=== PATIENT | female | born 1975 | race Caucasian/White ===

== ENCOUNTER 2019-05-27 08:38 | Inpatient (IN) | payer MEDICAID ==
[2019-05-27] VITALS (14 sets, daily range): BP systolic 111–149
[~2019-05-27] VITALS: Ht 154.9 cm; Wt 43.1 kg
--- NOTE | 2019-05-27 08:38 | NUR ---
BROUGHT IN BY [facility], PLACED IN BED AND TRIAGED. REPORT GIVEN TO ANDRES
--- NOTE | 2019-05-27 09:02 | NUR ---
Patient arrived in the ED c/o hyperglycemia with chest tightness, + weight loss, + SOB, substernal pain radiating to the back. Denied any fevers, nausea, vomiting, or chills. Patient is alert and oriented x4, respirations even and unlabored, speaking in full sentences, ambulating with a steady gait. VSS, pain level 6/10. Informed of wait time. Instructed to notify ED staff for any changes in condition or worsening of symptoms. Patient verbalized understanding.
--- NOTE | 2019-05-27 09:04 | NUR ---
ECG done at bedside as ordered by Dr. Sumner. Patient tolerated the procedure well. ER Physician given copy of EKG for review.
--- NOTE | 2019-05-27 09:08 | NUR ---
ER Dr. Sumner at bedside examining patient.
[2019-05-27] MEDS ORDERED: NACL 0.9% 2,000 ML IV ONE (09:15)
--- NOTE | 2019-05-27 09:25 | NUR ---
principal technical specialist at bedside collecting blood specimen as ordered by Dr. Sumner. Patient tolerated the procedure well.
[2019-05-27 09:30] LABS: BASOPHILS # (AUTO) 0.4 K/uL (0.0-0.2); BASOPHILS % (AUTO) 1.2 % (0.0-2.0); HEMATOCRIT 43.7 % (36-48); HEMOGLOBIN 14.2 g/dL (12.0-16.0); LYMPHOCYTES # (AUTO) 0.7 K/uL (1.0-5.5); LYMPHOCYTES % (AUTO) 2.2 % (20.5-51.5); MEAN CORPUSCULAR HEMOGLOBIN 30 pg (27-31); MEAN CORPUSCULAR HGB CONC 33 % (32-36); MEAN CORPUSCULAR VOLUME 93 fL (79.0-98.0); MONOCYTES # (AUTO) 2.4 K/uL (0.0-1.0); MONOCYTES % (AUTO) 7.3 % (1.7-9.3); NEUTROPHILS # (AUTO) 29.6 K/uL (1.8-7.7); NEUTROPHILS % (AUTO) 89.3 % (40.0-70.0); PLATELET COUNT (AUTO) 351 K/uL (130-430); RED BLOOD CELL COUNT(AUTO) 4.69 MIL/uL (4.2-6.2); RED CELL DISTRIBUTION WIDTH 13.6 % (9.0-15.0)
[2019-05-27 09:33] LABS: WHITE BLOOD COUNT (AUTO) 33.2 K/uL (4.8-10.8)
[2019-05-27 09:39] LABS: ANION GAP 22 (5-15); CALCIUM 8.5 mg/dL (8.4-11.0); CHLORIDE 92 mmol/L (98-107); CREATININE 0.83 mg/dL (0.55-1.30); POTASSIUM 4.3 mmol/L (3.5-5.1); SODIUM SERUM 123 mmol/L (136-145); UREA NITROGEN, BLOOD 15 mg/dL (8-21)
[2019-05-27 09:45] LABS: ACETONE, SERUM MODERATE (NEGATIVE)
--- NOTE | 2019-05-27 09:45 | NUR ---
Reconciled meds. Belonging's list done.
[2019-05-27 09:49] LABS: ALANINE AMINOTRANSFERASE 16 U/L (12-78); ASPARTATE AMINOTRANSFERASE 12 U/L (10-37); TOTAL BILIRUBIN 0.7 mg/dL (0.0-1.0)
[2019-05-27 09:51] LABS: GFR AFRICAN AMERICAN 97 mL/min (>90)
[2019-05-27 09:52] LABS: GLUCOSE 485 mg/dL (70-99)
[2019-05-27 10:06] LABS: ALBUMIN 2.7 g/dL (3.4-4.8)
[2019-05-27] MEDS ORDERED: INSULIN REGULAR, HUMAN 10 UNITS/0.1 ML INJ IVP ONE (10:15)
[2019-05-27] MEDS ORDERED: INSULIN REGULAR, HUMAN 100 UNITS in NS 99 ML IV ONE ×4 (10:15→11:00)
--- NOTE | 2019-05-27 10:15 | NUR ---
RT at bedside for ABGs.
--- NOTE | 2019-05-27 10:49 | NUR ---
DR ST SPOKE TO DR OKEEFE, PT NOT TRANSFERABLE, RECEIVED AUTHORIZATION #[id number]
[2019-05-27] MEDS ORDERED: NACL 0.9% IV SCH (11:00)
[2019-05-27] MEDS ORDERED: POTASSIUM CHLORIDE IV SCH (11:00)
[2019-05-27] MEDS ORDERED: cefTRIAXone 1 GM in D5W 50 ML IV ONE (11:00)
[2019-05-27] MEDS ORDERED: cefTRIAXone 1 GM VIAL ONE (11:19)
--- NOTE | 2019-05-27 11:30 | NUR ---
# 20 gauge angiocath placed to RFA. Use of asceptic technique. Opsite placed over site. Blood return noted. Flushed with 10 cc of normal saline. No evidence of infiltration noted. Patient tolerated well.
--- NOTE | 2019-05-27 11:58 | NUR ---
Patient will be admitted to care of Dr. Davenport. Admitted to ICU unit. Will go to room 7. Belongings list completed. Complete and up to date summary report printed. SBAR report to be given at bedside with opportunity for questions.
--- NOTE | 2019-05-27 12:10 | NUR ---
Patient received a/ox4, but drowsy at this time, on room air at this time, Regular Insulin Gtt at 6units/hour infusing well, vital signs taken, educated the patient on plan of care and call light system, she verbalized understanding, bed in lowest position, two side rails up, call light within reach, fall and aspiration precautions in place.
--- NOTE | 2019-05-27 12:14 | NUR ---
CONSULTATION PAGED: PRIORITY: ROUTINE REASON FOR CONSULTATION:DIABETIC KETOACIDOSIS WAS CONSULT CALLED:Y PERSON WHO WAS NOTIFIED:CHERYL CONSULTING PHYSICIAN: PERSONAL CARE ASSISTANT SPECIALTY:ENCDOCRINE PERSONAL CARE ASSISTANT PHONE NUMBER:[phone]
--- NOTE | 2019-05-27 12:50 | NUR ---
Called pharmacy for pending IVF orders, will follow up as needed.
--- NOTE | 2019-05-27 13:11 | NUR ---
Blood glucose check 262 at this time.
--- NOTE | 2019-05-27 13:14 | NUR ---
Witnessed insulin drip titrated from 6 units/hr to 3 units/hr.
[2019-05-27] MEDS ORDERED: FAMOTIDINE 20 MG TABLET PO ONE (14:00)
[2019-05-27] MEDS ORDERED: ACETAMINOPHEN 325 MG TABLET PO PRN (14:00)
[2019-05-27] MEDS ORDERED: ONDANSETRON HCL 4 MG/2 ML VIAL IVP PRN (14:00)
--- NOTE | 2019-05-27 14:00 | NUR ---
blood sugar 209, insulin drip decrease to 2units/hr.
[2019-05-27] MEDS: cefTRIAXone 1 GM in D5W 50 ML IV SCH (14:18)
--- NOTE | 2019-05-27 14:24 | NUR ---
Medication/Family educated the patient and her parents on medications and continuing to update with plan of care, they verbalized understanding, patient tolerated well, IV line is patent and infusing well, continuing to monitor, bed in lowest position, two side rails up, call light within reach, fall and aspiration precautions in place.
--- NOTE | 2019-05-27 15:08 | NUR ---
Blood glucose check 222 at this time, no change in insulin drip per protocol, continuing to monitor.
[2019-05-27 15:56] LABS: CALCIUM 8.5 mg/dL (8.4-11.0); CREATININE 0.67 mg/dL (0.55-1.30); POTASSIUM 3.4 mmol/L (3.5-5.1)
[2019-05-27] MEDS ORDERED: KCL 20 mEq in NS 1000 mL 1,000 ML IV SCH (16:00)
[2019-05-27] MEDS ORDERED: INSULIN REGULAR, HUMAN 100 UNITS in NS 99 ML IV PRN ×2 (16:02)
--- NOTE | 2019-05-27 16:13 | NUR ---
Dr. Castro rounds assessed patient, informed him that last bedside blood glucose was 198, will follow up with new orders. Addendum: 05/27/19 at 1617 by Sergio Petit RN Per new insulin drip orders from Dr. Castro - no change in insulin gtt rate - still 2units/hour.
[2019-05-27] MEDS ORDERED: POTASSIUM CHLORIDE 20 MEQ TAB.PRT.SR PO ONE ×2 (16:30→22:00)
[2019-05-27 16:34] LABS: PHOSPHORUS 1.1 mg/dL (2.7-4.5)
--- NOTE | 2019-05-27 17:16 | NUR ---
Blood glucose check 181 at this time, no change in insulin drip per protocol, 2units/hour, continuing to monitor.
--- NOTE | 2019-05-27 18:41 | NUR ---
BLOOD SUGAR 207MG/DL TITRATE INSULIN DRIP TO 3UNITS/HR. WITNESSED.
--- NOTE | 2019-05-27 19:20 | NUR ---
Report obtained from day shift nurse. Pt is sleepy, but easily arousable. Skin is warm and dry to touch. Insulin drip is infusing well in RAC at 3units/hr. IVF of NS W/ 20meq KCL is infusing well in LAC at 150ml/hr. IV sites are without any signs of infiltration. Fall and safety precautions are in place.
--- NOTE | 2019-05-27 20:01 | NUR ---
Accucheck 258 and Insulin drip increased to 4units/hr without any signs of infiltration at the IV site. Skin remains warm and dry to touch.
--- NOTE | 2019-05-27 20:01 | NUR ---
INSULIN DRIP I witness Mari FUNES increase insulin drip to 4 units/hour.
[2019-05-27 20:52] LABS: CALCIUM 8.3 mg/dL (8.4-11.0); CREATININE 0.68 mg/dL (0.55-1.30); PHOSPHORUS 1.1 mg/dL (2.7-4.5); POTASSIUM 3.5 mmol/L (3.5-5.1)
--- NOTE | 2019-05-27 21:04 | NUR ---
INSULIN DRIP I mal Guerra RN decrease insulin drip to 3 units/hour.
--- NOTE | 2019-05-27 21:04 | NUR ---
Accucheck 210 and Insulin drip decreased to 3units/hr without any signs of infiltration noted at the IV site. Skin remains warm and dry to touch.
--- NOTE | 2019-05-27 21:52 | NUR ---
Results of 2009 Chem7, Mag and Phos relayed to Dr. Mancuso and new orders received.
--- NOTE | 2019-05-27 22:02 | NUR ---
INSULIN DRIP I witness Mari FUNES decrease insulin drip to 2 units/hour per insulin sliding scale.
--- NOTE | 2019-05-27 22:02 | NUR ---
Accucheck 177 and Insulin drip decreased to 2units/hr without any signs of infiltration noted at the IV site. Skin remains warm and dry to touch.
--- NOTE | 2019-05-27 22:25 | NUR ---
Nursing care of pt endorsed to nurse De La Torre.
[2019-05-28] VITALS (22 sets, daily range): BP systolic 102–149
--- NOTE | 2019-05-28 | NUR ---
INSULIN DRIP I seven De La Torre RN decrease insulin drip to 1unit/hr per insulin sliding scale.
[2019-05-28 00:50] LABS: BILIRUBIN,URINE NEGATIVE (NEGATIVE); BLOOD, URINE 1+ (NEGATIVE); CLARITY/URINE CLEAR (CLEAR); COLOR,URINE YELLOW (YELLOW); GLUCOSE,URINE 3+ (NEGATIVE); KETONES,URINE 3+ (NEGATIVE); LEUKOCYTE ESTERASE ,URINE NEGATIVE (NEGATIVE); NITRITE, URINE NEGATIVE (NEGATIVE); PROTEIN URINE 2+ (NEGATIVE); UROBILINOGEN,URINE 0.2 (0.2-1.0)
[2019-05-28 00:54] LABS: HCG,QUAL RESULT NEGATIVE (NEGATIVE)
[2019-05-28] MEDS: K PHOS IV SCH ×3 (00:54→15:00)
[2019-05-28] MEDS: NACL IV SCH ×3 (00:54→15:00)
[2019-05-28 01:02] LABS: CALCIUM 8.3 mg/dL (8.4-11.0); CREATININE 0.43 mg/dL (0.55-1.30); POTASSIUM 3.6 mmol/L (3.5-5.1)
[2019-05-28 01:08] LABS: BACTERIA,URINE FEW /HPF (None Seen)
--- NOTE | 2019-05-28 02:00 | NUR ---
INSULIN DRIP I witnessed Wil FUNES stop insulin drip, per insulin sliding scale.
--- NOTE | 2019-05-28 02:13 | NUR ---
PAGED DR. PARKER [phone] SPOKE WITH GENE
[2019-05-28] MEDS ORDERED: KCL 20 mEq in D5/0.45NS 1000mL 1,000 ML IV SCH (02:21)
[2019-05-28] MEDS ORDERED: POTASSIUM CHLORIDE 20 MEQ TAB.PRT.SR PO ONE (02:30)
[2019-05-28] MEDS ORDERED: KCL 20 mEq in D5/0.45NS 1000mL 1,000 ML IV ONE (03:31)
--- NOTE | 2019-05-28 05:00 | NUR ---
Blood sugar 162. Insulin drip re started at this time at 2 u/h
--- NOTE | 2019-05-28 05:00 | NUR ---
INSULIN DRIP I witnessed Wil FUNES resume insulin drip, 2unit/hr per insulin sliding scale.
[2019-05-28 05:10] LABS: CALCIUM 8.4 mg/dL (8.4-11.0); CREATININE 0.39 mg/dL (0.55-1.30); PHOSPHORUS 1.5 mg/dL (2.7-4.5); POTASSIUM 3.9 mmol/L (3.5-5.1); THYROID STIMULATING HORMONE 0.4 uIu/mL (0.36-3.74)
--- NOTE | 2019-05-28 06:00 | NUR ---
INSULIN DRIP I seven De La oTrre RN increase insulin drip to 4units/hr per insulin sliding scale.
[2019-05-28] MEDS: FAMOTIDINE 20 MG TABLET PO SCH (09:24)
--- NOTE | 2019-05-28 09:52 | NUR ---
Called Dr. Evans with a consult, spoke with Manuela from doctors office
--- NOTE | 2019-05-28 10:27 | NUR ---
DC PLANNING RECEIVED PHONE CALL FROM [facility] MANDY FOR UPDATE OF PATIENT INFORMATION FOR POSSIBLE TRANSFER PATIENT. JET # [phone], CALLED DR RUTHERFORD # [phone] X2, AND CALLED HER OFFICE # [phone] X2, AWAIT FOR DR RUTHERFORD TO CALL BACK FOR POSSIBLE OUT NETWORK TRANSFER AND DCP. RAFITA FUNES CM Addendum: 05/28/19 at 1133 by Alex Bentley RN DC PLANNING REPORTED TO [facility] JET # [phone], BS AT 4 AM 191, NA 128, WBC 33.2, 05/27/2019 BS AT ED WAS 485, PROVIDED SANGEETA CASTILLO CELL# [phone] AND OFFICE # [phone] WELL ICU TEL # [phone]. JACI GALVAN MENTIONED THAT THE NETWORK FACILITY [facility]. AT 11:28 AM RECEIVED CALL BACK FROM SANGEETA CASTILLO, AWARE OF POSSIBLE TRANSFER PATIENT BACK TO NETWORK FACILITY. Addendum: 05/28/19 at 1352 by Alex Bentley RN DC PLANNING INFORMED INSURANCE JACI GALVAN FOR TRANSFER ORDER, JET WILL INFORM THEIR MEDICAL DR TO VERIFY IF THEY WANT TO TRANSFER PATIENT OR NOT. CONTINUE FOLLOW UP WITH DCP NEEDED RAFITA FUNES CM
[2019-05-28] MEDS ORDERED: POTASSIUM CHLORIDE 10 MEQ in NACL 0.9% 1,000 ML IV SCH (11:00)
[2019-05-28 11:02] LABS: BASOPHILS # (AUTO) 0.2 K/uL (0.0-0.2); BASOPHILS % (AUTO) 0.6 % (0.0-2.0); EOSINOPHILS # (AUTO) 0.1 K/uL (0.0-0.4); EOSINOPHILS % (AUTO) 0.5 % (0.0-4.0); HEMATOCRIT 38.2 % (36-48); HEMOGLOBIN 12.4 g/dL (12.0-16.0); LYMPHOCYTES # (AUTO) 1.1 K/uL (1.0-5.5); LYMPHOCYTES % (AUTO) 4.1 % (20.5-51.5); MEAN CORPUSCULAR HEMOGLOBIN 30 pg (27-31); MEAN CORPUSCULAR HGB CONC 32 % (32-36); MEAN CORPUSCULAR VOLUME 91 fL (79.0-98.0); MONOCYTES # (AUTO) 2.4 K/uL (0.0-1.0); MONOCYTES % (AUTO) 9.2 % (1.7-9.3); NEUTROPHILS # (AUTO) 22.2 K/uL (1.8-7.7); NEUTROPHILS % (AUTO) 85.6 % (40.0-70.0); PLATELET COUNT (AUTO) 258 K/uL (130-430); RED BLOOD CELL COUNT(AUTO) 4.19 MIL/uL (4.2-6.2); RED CELL DISTRIBUTION WIDTH 13.8 % (9.0-15.0); WHITE BLOOD COUNT (AUTO) 25.9 K/uL (4.8-10.8)
--- NOTE | 2019-05-28 11:07 | NUR ---
Nutrition Update Oliver Scale 16 noted. Pt admitted for DKA, sepsis. Diet: clear liquid BMI: 14.9 kg/m2 RD to follow per nutrition care standards.
--- NOTE | 2019-05-28 11:41 | NUR ---
DC PLANNING CHART REVIEWED, ICU CARE, BS 191/241, BS AT ED WAS 485, NA 128, WBC 33.2, ON INSULIN DRIP IVF, VISTED PATIENT AT ICU BS, MEETING PATIENT'S MOTHER FOR DCP INFORMATION. ADLS- INDEPENDENT, DME- NONE. DCP: POSSIBLE TRANSFER TO NETWORK FACILITY IN [place] OR [facility]. MOTHER WAS INFORMED BY JACI MARCOS, CURRENTLY AWAIT FOR STABLE TRANSFER AND ORDER. WILL CLOSELY FOLLOW UP WITH DCP NEEDED. JCC RN CM
--- NOTE | 2019-05-28 13:12 | NUR ---
Witnessed insulin drip titrated up to 4units/hr on pump.
--- NOTE | 2019-05-28 14:42 | NUR ---
DC PLANNING INFORMED INSURANCE CM MANDY FOR TRANSFER ORDER, JET WILL INFORM THEIR MEDICAL DR TO VERIFY IF THEY WANT TO TRANSFER PATIENT OR NOT. CONTINUE FOLLOW UP WITH DCP NEEDED RAFITA FUNES CM
[2019-05-28] MEDS: cefTRIAXone 1 GM in D5W 50 ML IV SCH (15:00)
--- NOTE | 2019-05-28 15:45 | NUR ---
Received endorsement from Milka FUNES using SBAR
--- NOTE | 2019-05-28 16:00 | NUR ---
ASSESSMENT PT sleeping and reports no pain. Lethargic. Blood Sugar of 340 mg/dL noted. Titrated to 5 units of insulin drip. Pt continent with no signs of edema or skin issues. A/O x 4. Will continue to monitor blood sugar hourly.
--- NOTE | 2019-05-28 16:00 | NUR ---
Witnessed insulin drip decreased to 5 units/hr on pump.
--- NOTE | 2019-05-28 17:00 | NUR ---
Witnessed insulin drip being decreased to 3 units/hr on the pump.
[2019-05-28] MEDS ORDERED: NA PHOS 15 MM in NS 250 ML IV ONE (18:00)
[2019-05-28] MEDS ORDERED: INSULIN REGULAR, HUMAN 100 UNITS in NS 99 ML IV PRN ×2 (18:15)
--- NOTE | 2019-05-28 18:20 | NUR ---
Dr Castro on unit. asked for BMP, MAG, & Phos results from last 12 hours. Informed MD that labs from 0800, 1200, & 1600 were not drawn. demanded orders we placed in the AM but no orders were found. Informed I received PT @ 1600 and was not endorsed about lab frequency. Amy FUNEScharge hand nurse is discussing issues with Milka FUNES (Registry) with . Informed I will be bedside if there are any issues that need to be discussed.
[2019-05-28] MEDS: AZITHROMYCIN 500 MG in NS 250 ML IV SCH (18:22)
[2019-05-28] MEDS ORDERED: DEXTROSE 50%-WATER 50 ML DISP.SYRIN IVP PRN (18:30)
[2019-05-28] MEDS ORDERED: D5W 1,000 ML IV PRN (18:30)
--- NOTE | 2019-05-28 18:30 | NUR ---
Dr Castro bedside, orders received.
--- NOTE | 2019-05-28 19:15 | NUR ---
Endorsement provided to night RN using SBAR. PT sleeping after eating dinner. No signs of pain. Family bedside.
--- NOTE | 2019-05-28 19:46 | NUR ---
ORDER CALLED DR. RUTHERFORD DIALED: [phone] SPOKE TO: MIRI
--- NOTE | 2019-05-28 20:38 | NUR ---
INSULIN DRIP I witnessed Katie FUNES increase insulin drip to 5 units/HR, per sliding scale.
[2019-05-28 20:59] LABS: CREATININE 0.48 mg/dL (0.55-1.30); POTASSIUM 3.9 mmol/L (3.5-5.1)
[2019-05-28 21:02] LABS: PHOSPHORUS 1.7 mg/dL (2.7-4.5)
--- NOTE | 2019-05-28 21:55 | NUR ---
IV SITE Left forearm with 20ga angiocath, discontinued due to IV site leaking.
[2019-05-28] MEDS ORDERED: POTASSIUM CHLORIDE 10 MEQ TAB.PRT.SR PO ONE (22:00)
--- NOTE | 2019-05-28 22:00 | NUR ---
IV RE-INSERTION: IV site leaking. Restarted on R upper arm . Successful after 1 attempts. Resumed current IVF NS+20mm potassium phosphate and regulated @ 100ml per hour. Will observe for any signs of infiltration.
--- NOTE | 2019-05-28 23:00 | NUR ---
INSULIN DRIP I witnessed Katie FUNES decrease insulin drip to 4 units/HR, per insulin sliding scale.
[2019-05-29] VITALS (24 sets, daily range): BP systolic 77–146
--- NOTE | 2019-05-29 00:21 | NUR ---
INSULIN DRIP I witnessed Katie FUNES decrease insulin drip to 3 units/HR per insulin sliding scale.
--- NOTE | 2019-05-29 01:30 | NUR ---
INSULIN DRIP I witnessed Katie FUNES decrease insulin drip to 2 units/HR per insulin sliding scale.
--- NOTE | 2019-05-29 02:00 | NUR ---
moffett cath 16 fr inserted with 300ml clear dark yellow urine return pt voided on bed ag at 2200 100ml urine
[2019-05-29 02:26] LABS: CALCIUM 7.8 mg/dL (8.4-11.0); CREATININE 0.32 mg/dL (0.55-1.30); PHOSPHORUS 2.3 mg/dL (2.7-4.5); POTASSIUM 3.8 mmol/L (3.5-5.1)
--- NOTE | 2019-05-29 03:19 | NUR ---
MD ROSALES CALLED [facility] FOR LAB RESULTS DIALED: [phone] SPOKE TO ALISA
--- NOTE | 2019-05-29 03:30 | NUR ---
DR PARKER GIVEN LAB RESULTS BMP PHOS AND MG INSULIN GTT AT 2UNITS AND ORDERED TO REDUCE TO 1 UNIT IF GLUCOSE BELOW 12O STOP INSULIN GTT FRANSISCA BLOOD SUGAR 1 HOUR AFTER IF ABOVE 120 RESTART INSULIN GTT
--- NOTE | 2019-05-29 03:30 | NUR ---
INSULIN DRIP I witnessed Katie FUNES decrease insulin drip to 1 unit/Hr, per Dr Castro.
--- NOTE | 2019-05-29 04:00 | NUR ---
INSULIN DRIP I witnessed Katie FUNES increase insulin drip to 3 units/HR per sliding scale. Sliding scale restarted.
[2019-05-29] MEDS ORDERED: COMMUNICATION ORDER XX ONE (04:15)
[2019-05-29 05:45] LABS: BASOPHILS # (AUTO) 0.1 K/uL (0.0-0.2); BASOPHILS % (AUTO) 0.8 % (0.0-2.0); EOSINOPHILS # (AUTO) 0.1 K/uL (0.0-0.4); EOSINOPHILS % (AUTO) 0.5 % (0.0-4.0); HEMATOCRIT 32.2 % (36-48); HEMOGLOBIN 10.6 g/dL (12.0-16.0); LYMPHOCYTES # (AUTO) 1.8 K/uL (1.0-5.5); LYMPHOCYTES % (AUTO) 12.5 % (20.5-51.5); MEAN CORPUSCULAR HEMOGLOBIN 30 pg (27-31); MEAN CORPUSCULAR HGB CONC 33 % (32-36); MEAN CORPUSCULAR VOLUME 89 fL (79.0-98.0); MONOCYTES # (AUTO) 1.6 K/uL (0.0-1.0); MONOCYTES % (AUTO) 11.3 % (1.7-9.3); NEUTROPHILS # (AUTO) 10.6 K/uL (1.8-7.7); NEUTROPHILS % (AUTO) 74.9 % (40.0-70.0); PLATELET COUNT (AUTO) 288 K/uL (130-430); RED CELL DISTRIBUTION WIDTH 13.5 % (9.0-15.0); WHITE BLOOD COUNT (AUTO) 14.1 K/uL (4.8-10.8)
[2019-05-29 06:22] LABS: ALBUMIN 1.6 g/dL (3.4-4.8); CALCIUM 7.6 mg/dL (8.4-11.0); CREATININE 0.31 mg/dL (0.55-1.30); PHOSPHORUS 2.8 mg/dL (2.7-4.5); TOTAL BILIRUBIN 0.3 mg/dL (0.0-1.0)
--- NOTE | 2019-05-29 07:20 | NUR ---
Received patient and report from [facility] shift nurse. Patient in no acute distress. Side rails x 3 up. Call light with in reach. Breathing even and unlabored. Denies pain.
[2019-05-29] MEDS: FAMOTIDINE 20 MG TABLET PO SCH (08:08)
[2019-05-29 08:21] LABS: CALCIUM 7.6 mg/dL (8.4-11.0); CREATININE 0.33 mg/dL (0.55-1.30); PHOSPHORUS 2.2 mg/dL (2.7-4.5); POTASSIUM 3.8 mmol/L (3.5-5.1)
[2019-05-29] MEDS: INSULIN REGULAR, HUMAN 100 UNITS in NS 99 ML IV PRN ×4 (08:22→09:56)
[2019-05-29] MEDS ORDERED: SODIUM BICARBONATE 650 MG TABLET PO SCH ×2 (09:00→21:00)
[2019-05-29] MEDS ORDERED: POTASSIUM CHLORIDE 20 MEQ TAB.PRT.SR PO ONE (09:15)
--- NOTE | 2019-05-29 09:20 | NUR ---
Informed MD Castro latest BMP results, new order sodium bicarb PO tablets 1300 BID and 20 meq potassium x 1 PO. Orders placed.
--- NOTE | 2019-05-29 11:06 | NUR ---
DC PLANNING Called & spoke w Andrzej @ [facility], ph [phone], states that Peer to Peer done yest & their Physician, Dr Diego, states not stable to transfer, pt to stay here. She will review case again today with their Physician but @ this time not stable to transfer per their Md, pt cont on Insulin drip in ICU. Pt ok to stay here for now.
[2019-05-29 12:46] LABS: CALCIUM 7.6 mg/dL (8.4-11.0); CREATININE 0.33 mg/dL (0.55-1.30); PHOSPHORUS 2.6 mg/dL (2.7-4.5); POTASSIUM 4.2 mmol/L (3.5-5.1)
--- NOTE | 2019-05-29 14:00 | NUR ---
DC PLANNING Received call from Dr Davenport, she spoke w Dr Mcgovern @ [facility] & stable for transfer. Can go either ICU or Tele depending where they can do Insulin drip. I called & left msg w Andrzej @ [facility]. Spoke w pt @ bedside, agreeable to transfer to contacted hospital, prefer [facility] or [facility]. Received call from Andrzej states she is working on transfer ICU level, will look for bed @ [facility] first will try [facility] last. States can use ambulance: [facility], [facility], or [facility] with auth #[id number]. If those ambulances are not able to then can use any ambulance with same auth#. Called & placed [facility] on will call, trip #[id number], nurse transport for IV Insulin drip & monitoring and evaluation advisor. Updated pt's nurse.
--- NOTE | 2019-05-29 14:06 | NUR ---
Paged Dr. Castro for orders. Spoke with exchange.
[2019-05-29] MEDS: cefTRIAXone 1 GM in D5W 50 ML IV SCH (14:08)
[2019-05-29] MEDS ORDERED: DEXTROSE 50% JECT 50 ML DISP.SYRIN IVP PRN (14:45)
[2019-05-29] MEDS ORDERED: INSULIN Lispro 100 UNITS/ML VIAL (humaLOG) SUBCUT ONE (14:45)
[2019-05-29] MEDS ORDERED: INSULIN GLARGINE 100 UNITS/ML 10 ML VIAL SUBCUT ONE (14:45)
--- NOTE | 2019-05-29 15:32 | NUR ---
Dietitian Recommendations * [facility]-45 gm diet w/ Glucerna TID (ONS provides an additional 660 kcal/day, 30 gm protein/day) TWAN, RD Please refer to Nutrition Assessment for details. Addendum: 05/29/19 at [address] Amended: Links added.
[2019-05-29] MEDS: AZITHROMYCIN 500 MG in NS 250 ML IV SCH (17:51)
[2019-05-29] MEDS: KCL 20 mEq in NS 1000 mL 1,000 ML IV SCH (17:51)
[2019-05-29] MEDS: INSULIN LISPRO SLIDING SCALE 100 UNITS/ML VIAL (humaLOG) SUBCUT PRN ×2 (17:56→21:41)
--- NOTE | 2019-05-29 19:19 | NUR ---
OPENING NOTE SBAR REPORT RECEIVED FROM ZELALEM FUNES. CARE ASSUMED. PT LAYING IN BED ON ROOM AIR. O2 SATURATION 98%. PT ANO X4. PT SINUS RHYTHM ON MONITOR. PT HAS 20 G IV TO RIGHT AC AND 20G RIGHT FOREARM RUNNING NS WITH 2MeQ POTASSIUM @ 100 ML/HR. RADIAL AND PEDAL PULSES NORMAL. NO EDEMA NOTED. ABDOMEN SOFT NON DISTENDED. BOWEL SOUNDS ACTIVE. BLISS CATHETER IN PLACE. URINE YELLOW AND CLEAR. SKIN INTACT. BED LOCKED IN LOWEST POSITION. CALL LIGHT WITHIN REACH. WILL CONTINUE TO MONITOR.
--- NOTE | 2019-05-29 19:20 | NUR ---
Endorsed patient and report to oncoming shift nurse. Patient in no acute distress. Side rails x 3 up. Call light with in reach. Breathing even and unlabored. Denies pain.
[2019-05-30] VITALS (17 sets, daily range): BP systolic 98–154
[2019-05-30] MEDS: KCL 20 mEq in NS 1000 mL 1,000 ML IV SCH ×3 (06:21→13:40)
[2019-05-30 06:40] LABS: CALCIUM 7.8 mg/dL (8.4-11.0); CREATININE 0.31 mg/dL (0.55-1.30); POTASSIUM 3.8 mmol/L (3.5-5.1)
--- NOTE | 2019-05-30 07:26 | NUR ---
CLOSING NOTE PT LAYING IN BED. NO SIGNS OR SYMPTOMS OF DISTRESS NOTED. SBAR REPORT GIVEN TO ASTER FUNES. CARE ENDORSED.
--- NOTE | 2019-05-30 07:27 | NUR ---
Opening Note Received bedside report from endorsing RN for continuation of care. Received patient resting in bed, arousable to voice and denies any SOB or pain. No signs or symptoms of acute distress noted. Bed locked in lowest position, bed alarm on, and call light within reach. Fall and safety precautions in place.
[2019-05-30] MEDS: FAMOTIDINE 20 MG TABLET PO SCH (08:52)
[2019-05-30] MEDS: INSULIN GLARGINE 100 UNITS/ML 10 ML VIAL SUBCUT SCH (08:54)
--- NOTE | 2019-05-30 10:20 | NUR ---
Dr. Davenport at bedside examining patient. New orders received.
--- NOTE | 2019-05-30 10:20 | NUR ---
Telemetry Status Per Dr. Davenport, patient can be transferred to telemetry unit. Patient will remain in ICU and be monitored under telemetry status until hospital bed becomes available.
--- NOTE | 2019-05-30 10:41 | NUR ---
Dr. Castro at bedside examining patient. No new orders.
[2019-05-30] MEDS: INSULIN LISPRO SLIDING SCALE 100 UNITS/ML VIAL (humaLOG) SUBCUT PRN ×3 (11:26→21:56)
[2019-05-30] MEDS: cefTRIAXone 1 GM in D5W 50 ML IV SCH (13:40)
--- NOTE | 2019-05-30 14:11 | NUR ---
Dr. Evans at bedside examining patient. New orders received.
--- NOTE | 2019-05-30 14:40 | NUR ---
Transfer to Telemetry Patient transferred to telemetry unit room 108-A via wheelchair using ACLS protocol. ACLS RN present at all times. Endorsed bedside report to oncoming RN using SBAR approach for continuation of care.
--- NOTE | 2019-05-30 14:45 | NUR ---
TRANSFER NOTES rec patiert for icu. awake alert with ivf infusing well . no infiltration oted. bed to the lowest position and side rails up and locked. call light within reached and no sob noted. denies pain at this time.
--- NOTE | 2019-05-30 17:58 | NUR ---
rounds assited to the br and maria well. no sob noted. no hypo hyperglycemic reaction noted.
[2019-05-30] MEDS: AZITHROMYCIN 500 MG in NS 250 ML IV SCH (18:18)
--- NOTE | 2019-05-30 19:20 | NUR ---
initial notes: pt is on bed, awake, alert, oriented x 4, no sob, not distress, no pain, pt complain of coughing will page md for orders. stable, iv antibiotic infusing wt this time. ambulatory with steady gait. explained poc, pt verbalized understanding. needs attended, call light in reach. will monitor.
--- NOTE | 2019-05-30 19:31 | NUR ---
paged paged for Dr Davenport, dialed . s/w Mylene.
--- NOTE | 2019-05-30 19:35 | NUR ---
dr. bajwa call back, spoke to md, report pt is ask for cough medication. md order prn and schedule cough medication.
[2019-05-30] MEDS: guaiFENesin/DEXTROMETHORPHAN 10 ML UDC PO PRN ×2 (20:25→20:28)
[2019-05-30] MEDS: BENZONATATE 100 MG CAPSULE (TESSALON) PO SCH (21:52)
--- NOTE | 2019-05-30 22:01 | NUR ---
awake, alert. no pain, no sob, stable. needs attended.
--- NOTE | 2019-05-31 | NUR ---
sleeping, comfortable, no acute distress. stable. call light with pt.
--- NOTE | 2019-05-31 02:00 | NUR ---
sleeping, no acute distress, stable, ivf infusing well. will monitor.
[2019-05-31] MEDS: guaiFENesin/DEXTROMETHORPHAN 10 ML UDC PO PRN ×3 (03:55→20:56)
--- NOTE | 2019-05-31 04:19 | NUR ---
pt is awake, ask for cough medication, stable, needs attended.
--- NOTE | 2019-05-31 06:03 | NUR ---
sleeping, no acute distress, no sob. stable, ivf infusing well. will monitor.
[2019-05-31 07:15] LABS: BASOPHILS # (AUTO) 0.1 K/uL (0.0-0.2); BASOPHILS % (AUTO) 0.6 % (0.0-2.0); EOSINOPHILS # (AUTO) 0.1 K/uL (0.0-0.4); EOSINOPHILS % (AUTO) 0.8 % (0.0-4.0); HEMATOCRIT 29.5 % (36-48); HEMOGLOBIN 9.9 g/dL (12.0-16.0); LYMPHOCYTES # (AUTO) 1.4 K/uL (1.0-5.5); LYMPHOCYTES % (AUTO) 14.2 % (20.5-51.5); MEAN CORPUSCULAR HEMOGLOBIN 30 pg (27-31); MEAN CORPUSCULAR HGB CONC 34 % (32-36); MEAN CORPUSCULAR VOLUME 89 fL (79.0-98.0); MONOCYTES % (AUTO) 20.2 % (1.7-9.3); NEUTROPHILS # (AUTO) 6.3 K/uL (1.8-7.7); PLATELET COUNT (AUTO) 361 K/uL (130-430); RED BLOOD CELL COUNT(AUTO) 3.31 MIL/uL (4.2-6.2); RED CELL DISTRIBUTION WIDTH 13.7 % (9.0-15.0); WHITE BLOOD COUNT (AUTO) 9.8 K/uL (4.8-10.8)
--- NOTE | 2019-05-31 07:26 | NUR ---
CLOSING: SLEEPING, COMFORTABLE,STABLE THE WHOLE SHIFT. IVF INFUSING WELL. NEEDS ATTENDED THE WHOLE SHIFT. BEDSIDE REPORT GIVEN TO AM RN
[2019-05-31 08:00] VITALS: BP_SYST 115
--- NOTE | 2019-05-31 08:00 | NUR ---
initial notes rec patient awake alert and was eating breakfast. ivf infusing well on the l ac. no infiltration noted. bed to the lowest position and side rails up and locked. call light within reached. no hypo hyperglycemic reaction noted.
[2019-05-31 09:14] LABS: NEUTROPHILS % (AUTO) 64.2 % (40.0-70.0)
--- NOTE | 2019-05-31 09:17 | NUR ---
PAGED PAGED LISANDRO KINCAID AT [phone] SPOKE WITH EXCHANGE.
[2019-05-31] MEDS: BENZONATATE 100 MG CAPSULE (TESSALON) PO SCH ×3 (09:30→20:56)
--- NOTE | 2019-05-31 09:30 | NUR ---
rounds seen by dr pruett and with order. sleeping at intervals. call light within reached.
[2019-05-31] MEDS: FAMOTIDINE 20 MG TABLET PO SCH (09:33)
[2019-05-31] MEDS: INSULIN GLARGINE 100 UNITS/ML 10 ML VIAL SUBCUT SCH (09:33)
[2019-05-31] MEDS: KCL 20 mEq in NS 1000 mL 1,000 ML IV SCH (10:10)
[2019-05-31 12:25] VITALS: BP_SYST 100
--- NOTE | 2019-05-31 12:30 | NUR ---
rounds no hypo hyperglycemic reaction noted.
[2019-05-31] MEDS: INSULIN LISPRO SLIDING SCALE 100 UNITS/ML VIAL (humaLOG) SUBCUT PRN ×3 (12:54→21:44)
--- NOTE | 2019-05-31 14:30 | NUR ---
rounds iv was infiltrated and was restarted by lamont chou rn. sleeps at intervals.
[2019-05-31] MEDS: cefTRIAXone 1 GM in D5W 50 ML IV SCH (15:13)
[2019-05-31 16:20] VITALS: BP_SYST 105
[2019-05-31] MEDS: AZITHROMYCIN 500 MG in NS 250 ML IV SCH (17:01)
--- NOTE | 2019-05-31 17:14 | NUR ---
rounds pt was taken to xray for ct chest via wheelchair. no sob noted.
--- NOTE | 2019-05-31 18:22 | NUR ---
closing notes no hypo hyperglycemic reaction noted. bed to the lowest position and side rails up . call light within reached. no hypo hyperglycemic reaction noted.bed to the lowest position and side rails up and locked.
--- NOTE | 2019-05-31 19:45 | NUR ---
A/A/ OX4.DENIES ANY DISCOMFORT @ THIS TIME.DENIES SOB.O2 SAT ON RA 98%.IVF NS +20 MEQ KCL/L @ 40 ML/HR INFUSING WELL ON HER LFA..INSTRUCTED TO USE CALL LIGHT NEEDED;WITHIN REACH.
[2019-05-31 20:00] VITALS: BP_SYST 105
--- NOTE | 2019-05-31 20:00 | NUR ---
V/S STABLE.AFEBRILE.TELE SHOWED SR.
--- NOTE | 2019-05-31 21:44 | NUR ---
FINGER STICK BLD SUGAR 257.HUMOLOG 6 UNITS ADM .SNACKS GIVEN.
--- NOTE | 2019-06-01 | NUR ---
NOTED WITH OCCASIONAL NON PRODUCTIVE COUGH PER PT. TELE SHOWED SR.
[2019-06-01 00:16] VITALS: BP_SYST 119
--- NOTE | 2019-06-01 02:00 | NUR ---
RESTING COMFORTABLY IN NO ACUTE DISTRESS.
--- NOTE | 2019-06-01 04:00 | NUR ---
V/S STABLE.AFEBRILE.TELE SHOWED SR.
[2019-06-01] MEDS: guaiFENesin/DEXTROMETHORPHAN 10 ML UDC PO PRN ×3 (05:08→21:35)
--- NOTE | 2019-06-01 06:30 | NUR ---
FINGER STICK BLD SUGAR 118.
--- NOTE | 2019-06-01 06:45 | NUR ---
ENDORSED IN NO ACUTE DISTRESS.SAFETY MAINTAINED.IVF INFUSING WELL.NO S/S OF HYPO/HYPERGLYCEMIA NOTED.
--- NOTE | 2019-06-01 08:00 | NUR ---
INITIAL NOTES Awake, sitting in bed. Alert and oriented. Denies any pain or shortness of breath. IVF infusing well. Eats breakfast. Updated with plan of care. Reminded about safety precautions. Call light within reach. Will monitor.
[2019-06-01 08:03] VITALS: BP_SYST 122
[2019-06-01] MEDS: FAMOTIDINE 20 MG TABLET PO SCH (08:30)
[2019-06-01] MEDS: BENZONATATE 100 MG CAPSULE (TESSALON) PO SCH ×3 (08:30→21:24)
[2019-06-01] MEDS: INSULIN GLARGINE 100 UNITS/ML 10 ML VIAL SUBCUT SCH (08:31)
[2019-06-01] MEDS: INSULIN LISPRO SLIDING SCALE 100 UNITS/ML VIAL (humaLOG) SUBCUT PRN ×3 (11:27→21:40)
--- NOTE | 2019-06-01 11:30 | NUR ---
Notes- resting in bed, awake. denies any pain or discomfort. Blood sugar is 269. No distress noted.
--- NOTE | 2019-06-01 11:40 | NUR ---
Transfer to [facility]: Per dr. Davenport: transfer pt to [facility] net work: [facility]. Tele status. CM faxed the order to [place], [facility] dept # [phone] and fax the revised order to fax # [phone]. >> Per Jet: the pt did not transfer on Monday 05/29 due to no bed at [facility]. Today she is waiting for dr. Mcgovern to respond the accepting confirmation. She stated dr. Mcgovern has not returning her call and requested dr. Davenport to reach out and to update pt's status to dr. Mcgovern. I informed dr. Davenport /said " she will contact ."
[2019-06-01 12:00] VITALS: BP_SYST 119
[2019-06-01 12:11] VITALS: BP_SYST 119
[2019-06-01] MEDS: cefTRIAXone 1 GM in D5W 50 ML IV SCH (13:38)
--- NOTE | 2019-06-01 15:00 | NUR ---
Resting in bed. Ambulates independently. Denies any shortness of breath or pain. Needs met. Will continue to monitor.
[2019-06-01 16:00] VITALS: BP_SYST 126
--- NOTE | 2019-06-01 16:00 | NUR ---
Family member sent more patient belongings, mostly clothes and food from outside. Encouraged patient to comply with diet regimen as ordered by doctor.
[2019-06-01] MEDS: AZITHROMYCIN 500 MG in NS 250 ML IV SCH (17:26)
--- NOTE | 2019-06-01 18:25 | NUR ---
CLOSING NOTES Awake and safe in bed. Eats dinner. IV antibiotic still infusing. All needs met throughout shift. Will endorse.
--- NOTE | 2019-06-01 19:05 | NUR ---
OPENING NOTES RECEIVED PATIENT SITTING IN BED. BREATHING UNLABORED ON ROOM AIR. NO C/O PAIN. BED IN LOWEST LOCKED POSITION WITH CALL LIGHT WITH IN REACH.
[2019-06-01 21:23] VITALS: BP_SYST 113
--- NOTE | 2019-06-01 21:35 | NUR ---
MED PASS PATIENT DUE MEDICATIONS GIVEN. COUGH MEDICINE PROVIDED PER PATIENT REQUEST. VITAL SIGNS STABLE.
[2019-06-02 00:45] VITALS: BP_SYST 108
--- NOTE | 2019-06-02 00:45 | NUR ---
ROUNDS PATIENT AWAKE IN BED. NO DISTRESS NOTED. VITAL SIGNS STABLE.
--- NOTE | 2019-06-02 03:30 | NUR ---
ROUNDS NO CHANGE IN PATIENT CONDITION.
[2019-06-02] MEDS: guaiFENesin/DEXTROMETHORPHAN 10 ML UDC PO PRN (06:04)
[2019-06-02] MEDS: INSULIN LISPRO SLIDING SCALE 100 UNITS/ML VIAL (humaLOG) SUBCUT PRN ×4 (06:11→20:56)
--- NOTE | 2019-06-02 06:46 | NUR ---
CLOSING NOTES PATIENT AWAKE SITTING IN BED. NO C/O PAIN. BREATHING UNLABORED ON ROOM AIR. STILL C/O DRY COUGH WAS JUST MEDICATED WITH COUGH MEDICINE. PATIENT NEEDS ATTENDED. BED IN LOWEST LOCKED POSITION. CALL LIGHT WITH IN REACH.
--- NOTE | 2019-06-02 08:01 | NUR ---
Initial notes: Patients vitals are stable, she asked for her breakfast tray and was given to her early. Bed is low, locked, 2 side rails up and call light within reach. Lluvia FUNES
[2019-06-02] MEDS: FAMOTIDINE 20 MG TABLET PO SCH (08:07)
[2019-06-02] MEDS: BENZONATATE 100 MG CAPSULE (TESSALON) PO SCH ×3 (08:08→20:53)
[2019-06-02] MEDS: INSULIN GLARGINE 100 UNITS/ML 10 ML VIAL SUBCUT SCH (08:09)
--- NOTE | 2019-06-02 10:06 | NUR ---
Patients medications were given to her this am, she had breakfast and now going back to sleep. Bed is low, locked, 2 side rails up and call light within reach. Lluvia FUNES
[2019-06-02 10:09] VITALS: BP_SYST 114
--- NOTE | 2019-06-02 11:14 | NUR ---
TRANSFER TO NETWORK: [facility] f/u with [facility] [employer], Karen [facility]/ dept # [phone], so far I have not received any transfer update from [employer] since yesterday. The transfer is pending the confirmed accepting md and bed assignment from Kase[facility]. Addendum: 06/02/19 at 1156 by Dave Horton RN >> Called back from [facility]: stated " no bed available at [facility]". The pt is authorized at [facility] as long as pt meets the inpatient stay. -- Dr Davenport made aware.
--- NOTE | 2019-06-02 12:10 | NUR ---
Patient is in her bed eating lunch. Bed is low, locked, 2 side rails are up and her call light is within reach. Lluvia FUNES
--- NOTE | 2019-06-02 14:00 | NUR ---
Patient is in bed watching TV, her sugars have not been controlled, Doctor Yudy mentioned to her that her sugar levels are not well controlled and that she needed a better glucose control and metformin will be intergrated into her routine, the patient was fine. Bed is low, locked, 2 side rails are up and her call light is within reach. Lluvia FUNES
[2019-06-02 14:41] VITALS: BP_SYST 117
[2019-06-02 16:00] VITALS: BP_SYST 134
[2019-06-02] MEDS: cefTRIAXone 1 GM in D5W 50 ML IV SCH (16:13)
--- NOTE | 2019-06-02 16:59 | NUR ---
Patient is doing well, she is watching tv. Bed is low, locked, 2 side rails are up and her call light is within reach. Lluvia FUNES
--- NOTE | 2019-06-02 18:32 | NUR ---
Closing notes: Patient is watching TV, no new orders as of yet. Will give report to oncoming nurse. Bed is low, locked, 2 side rails are up and her call light is within reach. Lluvia FUNES
[2019-06-02] MEDS ORDERED: ZOLPIDEM TARTRATE 5 MG TABLET PO PRN (19:15)
[2019-06-02 20:48] VITALS: BP_SYST 108
--- NOTE | 2019-06-02 20:53 | NUR ---
MED PASS PATIENT DUE MEDICATIONS GIVEN. VITAL SIGNS STABLE. HS SNACK PROVIDED.
--- NOTE | 2019-06-02 22:12 | NUR ---
SLEEP PATIENT MEDICATED WITH FIORDALIZA FOR SLEEP PER PATIENT REQUEST. POSSIBLE SIDE EFFECTS DISCUSSED WITH PATIENT.
[2019-06-03 00:30] VITALS: BP_SYST 129
--- NOTE | 2019-06-03 00:43 | NUR ---
ROUNDS PATENT SITTING IN BED. DENIES PAIN. BREATHING UNLABORED. CALL LIGHT WITH IN REACH.
--- NOTE | 2019-06-03 03:30 | NUR ---
ROUNDS PATIENT RESTING IN BED. NO DISTRESS NOTED.
[2019-06-03] MEDS: INSULIN LISPRO SLIDING SCALE 100 UNITS/ML VIAL (humaLOG) SUBCUT PRN ×3 (06:24→17:33)
--- NOTE | 2019-06-03 06:43 | NUR ---
CLOSING NOTES PATIENT AWAKE AM SNACK GIVEN PER PATIENT REQUEST. AM FINGER STICK SUGAR 162. NO C/O PAIN . BREATHING UNLABORED ON ROOM AIR. PATIENT NEEDS ATTENDED.
--- NOTE | 2019-06-03 07:32 | NUR ---
OPENING NOTE Patient resting in the bed. No acute distress. AAO x 4. Denied of pain. skin warm and dry to touch. SL intact to left wrist, no redness, no swelling, patent. Discussed the safety issue, use call light when needs help, and plan of care, verbally understanding. Safety measure maintained. Call light within reached. Bed locked in low position, side rails up. Refused bed alarm, risk and benefit explained, verbally understanding. Will continue to monitor.
[2019-06-03 07:55] VITALS: BP_SYST 119
[2019-06-03] MEDS: FAMOTIDINE 20 MG TABLET PO SCH (08:47)
[2019-06-03] MEDS: BENZONATATE 100 MG CAPSULE (TESSALON) PO SCH ×2 (08:47→14:58)
[2019-06-03] MEDS: INSULIN GLARGINE 100 UNITS/ML 10 ML VIAL SUBCUT SCH (08:49)
--- NOTE | 2019-06-03 08:50 | NUR ---
LANTUS EDUCATION Lantus 15 units given as ordered. MH=556. Educated the medication of Lantus, the indication and possible side effect, verbally understanding. Instructed to patient has to eat and important of follow the [facility] diet, verbally understanding. Per patient, she is able to administrate the insulin injection and did it during . Safety measure maintained. Call light within reached. Continue to monitor.
--- NOTE | 2019-06-03 11:39 | NUR ---
ND=298 Humalog insulin 4 units given per sliding scale. Patient resting in the bed. No acute distress. safety measure maintained. Call light within reached. Continue to monitor.
[2019-06-03 12:34] VITALS: BP_SYST 119
--- NOTE | 2019-06-03 13:20 | NUR ---
ROUND Patient resting in the bed. No acute distress. Safety measure maintained. Call light within reached. Bed locked in low position, side rails up. Continue to monitor.
--- NOTE | 2019-06-03 15:00 | NUR ---
SCHEDULE DINAON DONNA GIVEN Patient resting in the bed. No acute distress. Safety measure maintained. Call light within reached. Continue to monitor.
--- NOTE | 2019-06-03 16:19 | NUR ---
Nutrition Education RD provided nutrition education at bedside (diabetic teaching). Please refer to interdisciplinary teaching record for details.
--- NOTE | 2019-06-03 16:42 | NUR ---
SEEN AND EXAMINED BY LISANDRO DONALDSON WITH DISCHARGE ORDER RECEIVED.
[2019-06-03 16:45] VITALS: BP_SYST 112
--- NOTE | 2019-06-03 17:33 | NUR ---
DU=317 Humalog insulin 8 units given per sliding scale. Patient resting in the bed. No acute distress. safety measure maintained. Call light within reached. Continue to monitor.
[2019-06-03 17:51] VITALS: BP_SYST 112
[2019-06-03] MEDS ORDERED: INSU100V9 SQ (18:01)
[2019-06-03] MEDS ORDERED: GLU500 PO (18:01)
[2019-06-03] MEDS ORDERED: LEVO750T45 PO (18:02)
[2019-06-03] MEDS ORDERED: ALBMDI INH (18:06)
[2019-06-03] MEDS ORDERED: BENZ-16 PO (18:07)
[2019-06-03] MEDS ORDERED: BLOO-1360 MC (18:10)
--- NOTE | 2019-06-03 18:30 | NUR ---
D/C Patient Patient given medication reconciliation form and D/C instructions. Exit Care provided. Patient verbalized understanding. MD discussed with patient the results and treatment provided. Ambulatory with steady gait for discharge to home. Patient in stable condition, ID band removed. IV catheter removed, intact and dressing applied, no active bleeding. Rx of Levaquin, Tessalon Perle, Lantus insulin, Metaform, insulin syringe, glucose meter, glucose test strip given. Patient educated on follow up appointment, diet, and medication management, verbally understanding. All belongings sent with patient.
--- NOTE | 2019-06-11 13:25 | NUR ---
Discharge Follow Up Phone Call Phoned patient, , on 06/10/19 and 06/11/19 and left a voicemail message with reminder to make follow up appointments, asked if prescriptions were filled, offer of assistance and Social Service contact information.
== END 2019-06-03 18:30 | disposition home or self-care (01) | DRG 720 ==
LOC: SED 08:38 → SIC 10:51 → STU 05-30 14:39
PROVIDERS: ADMIT Internal Medicine; ATTEND Internal Medicine
DX: A41.9 Sepsis, unspecified organism (principal); E43 Unspecified severe protein-calorie malnutrition; E11.10 Type 2 diabetes mellitus with ketoacidosis without coma; J18.9 Pneumonia, unspecified organism; E87.1 Hypo-osmolality and hyponatremia; E87.6 Hypokalemia; I10 Essential (primary) hypertension; Z82.49 Family history of ischemic heart disease and other diseases of the circulatory system; Z83.3 Family history of diabetes mellitus; Z91.14 Patient's other noncompliance with medication regimen; Z91.19 Patient's noncompliance with other medical treatment and regimen; Z98.891 History of uterine scar from previous surgery; Z68.1 Body mass index [BMI] 19.9 or less, adult
CPT/HCPCS: 36415; 36600; 71045; 71046-TC; 71250-TC; 80048; 80053; 81000-TC; 82009-TC; 82550-TC; 82803-TC; 82962; 83036; 83605; 83735-TC; 84100-TC; 84443-TC; 84703; 85025; 86710; 87040-TC; 87081; 93005; 96365; 96368; 97110-GP; 97116-GP; 99291; G0378; J0456; J0696; J1815; J3480; J7030; J7050; J7060